=== PATIENT | male | born 1950 | race Two or more races ===

== ENCOUNTER → 2018-09-27 | Outpatient (CLI) | payer OTHER | END | disposition home or self-care (01) | LOC: NUCLEAR 10:22 | DX: I70.213 Atherosclerosis of native arteries of extremities with intermittent claudication, bilateral legs (principal) ==

== ENCOUNTER 2021-09-29 11:15 | Emergency (ER) | payer OTHER ==
[~2021-09-29] VITALS: Ht 180.3 cm; Wt 93.9 kg
[2021-09-29] MEDS ORDERED: CARDURA1 MG (11:42)
[2021-09-29] MEDS ORDERED: LIPITOR40 M1 (11:42)
[2021-09-29] MEDS ORDERED: PLAVIX75 MG (11:43)
[2021-09-29] MEDS ORDERED: LIPOFEN50 MG (11:43)
[2021-09-29] MEDS ORDERED: TOPROL XL50 M1 (11:44)
[2021-09-29] MEDS ORDERED: GLUMETZA1000 MG (11:44)
[2021-09-29] MEDS ORDERED: NEURONTIN600 M1 (11:44)
[2021-09-29] MEDS ORDERED: PENTOXIFYLLINE400 MG (11:45)
[2021-09-29] MEDS ORDERED: NORVASC10 MG (11:45)
[2021-09-29] MEDS ORDERED: PROTONIX40 MG (11:46)
[2021-09-29] MEDS ORDERED: ATACAND32 MG (11:46)
[2021-09-29] MEDS ORDERED: CILOSTAZOL100 MG (11:47)
[2021-09-29] MEDS ORDERED: AMOX-CLAV 875-1 EACH PO (13:10)
== END 2021-09-29 13:17 | disposition home or self-care (01) ==
LOC: ER 11:15
DX: S81.851A Open bite, right lower leg, initial encounter (principal); W55.01XA Bitten by cat, initial encounter; Y93.89 Activity, other specified; Y92.89 Other specified places as the place of occurrence of the external cause; Y99.8 Other external cause status